=== PATIENT | female | born 1980 | race Caucasian/White ===

== ENCOUNTER 2016-04-12 18:01 | Emergency (ER) | payer OTHER ==
--- NOTE | 2016-04-12 20:00 | ED CLINICAL REPORT ---
Clinical Report - Physicians/Mid Levels [facility] [address] [place] [address] 04/12/2016 18:02 Patient: ALVINO WADE Time Seen: 19:10; upon arrival, initial patient contact, initial documentation, patient care assumed. Arrived- By private vehicle. Historian- patient. HISTORY OF PRESENT ILLNESS Chief Complaint: HEADACHE. This started just prior to arrival. It is described as "pain" and diffuse. No neck pain. Not located in the facial region. At its maximum, severity described as severe. When seen in the E.D., it was almost gone. Modifying factors: relieved by nothing. Not worsened by anything. No preceding symptoms, blurred vision, photophobia, associated nausea or numbness. No weakness or vomiting. 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 No recent travel. Similar symptoms previously: Chronically, as bad. Recent medical care: Not recently seen/assessed. REVIEW OF SYSTEMS No fever, muscle aches, sinus pressure, ear pain or sore throat. No head injury or cough. c/o anxiety and stress lately and says the anxiety is making the headaches worse and come more often, would like something for anxiety. All systems otherwise negative, except as recorded above. PAST HISTORY See nurses notes. PROBLEMS: Bronchitis. Hypertension. Anxiety Reaction. --18:20 Aliya Ornelas R.N. Depression. --18:22 Aliya Ornelas RMitchelN. ADDITIONAL SURGERIES: Knee Surgery. Tonsillectomy. Tubal Ligation. --18:21 Aliya Ornelas R.N. SOCIAL HISTORY Light tobacco smoker. History of heavy drug use: methamphetamines. Recently used drugs today. Under influence in ED. No alcohol use. No recent travel. Is a local resident. FAMILY HISTORY Negative. ADDITIONAL NOTES The nursing notes have been reviewed with agreement regarding the chief complaint, HPI, ROS, PMH and patient medications and allergies. PHYSICAL EXAM Vital Signs: 04/12/2016 18:15 BP: 158/110. HR: 94. RR: 16. O2 saturation: 100%. Temp: 98.0 F. Have been reviewed as abnormal and appear to be correct. Hypertensive. Heart rate normal. Respiratory rate normal. Temperature normal. Oxygen saturation normal. Appearance: Alert. No acute distress. Eyes: Pupils equal, round and reactive to light. Eyes normal inspection. ENT: Ears normal. Nose normal. Pharynx normal. Neck: Normal inspection. Neck supple. CVS: Normal heart rate and rhythm. Heart sounds normal. Respiratory: No respiratory distress. Breath sounds normal. Back: Normal inspection. Skin: Skin warm and dry. Normal skin color. No rash. Normal skin turgor. Extremities: Extremities exhibit normal ROM. No lower extremity edema. Neuro: Oriented X 3. Alert. Mood/affect normal. Speech normal. Cranial nerves normal (as tested). No cerebellar findings. No motor deficit. No sensory deficit. PROGRESS AND PROCEDURES Course of Care: 04/12/2016 20:24 BP: 118/94. HR: 88. RR: 16. O2 saturation: 100%. Temp: 98.5 F. Vital Signs: have been reviewed as normal and appear to be correct. Patient counseled in person regarding the patient's stable condition and diagnosis. 20:00. Differential Diagnosis: I considered migraine, subarachnoid hemorrhage, intracranial bleed, vascular malformation, cerebral aneurysm, vascular dissection, vasculitis, temporal arteritis, sinusitis, influenza, viral syndrome, carbon monoxide exposure, analgesic abuse, hypoglycemia and trigeminal neuralgia as a possible cause of headache in this patient. This is a partial list of diagnoses considered. Other possible considerations: anxiety. Above considerations are based on history and physical exam. Differential diagnosis was discussed with patient. Disposition: Discharged home in good and improved condition (20:00). Condition: good and stable. CLINICAL IMPRESSION Acute new daily persistent headache. Anxiety reaction. INSTRUCTIONS Warnings: GENERAL WARNINGS: Return or contact your physician immediately if your condition worsens or changes unexpectedly, if not improving as expected, or if other problems arise. SPECIFICALLY, return if you develop fever, vomiting, numbness, weakness, difficulty thinking, visual disturbances, fainting or extreme fatigue. Prescription Medications: Fioricet: Take 1-2 orally every 4 hours as needed for headache. Dispense twenty (20). No refills. Substitution is permissible. Xanax 0.25 mg: Take 1 orally every 8 hours as needed for anxiety. Dispense fifteen (15). No refills. Substitution is permissible. Follow-up: Follow up with your doctor in about three days even if well. Call for an appointment. Summary of care provided to patient. Screening today revealed the patient's blood pressure to be in the hypertensive range. Blood pressure screening was not performed during this visit because blood pressure screening was precluded by clinical urgency. Understanding of the discharge instructions verbalized by patient. (Electronically signed by Nandini Bermudez A.R.N.P. 04/12/2016 20:45)
--- NOTE | 2016-04-12 20:01 | ED ORDER SUMMARY ---
..... Patient: ALVINO WADE OrderSheet [facility] VisitID: [id number] [address] [place] [address] 35y, F Registration Date/Time: 04/12/2016 ORDER SHEET Weight: 58.9 kg (stated) Allergies: Penicillin GENERAL ORDERS: MEDICATION ORDERS: Xanax PO 0.5 mg (NOW) (19:27 04/12/2016 Arelis A.R.N.P.) (19:39 Jovany R.N.) IV FLUIDS: ORDER SHEET NOTES: [Electronically signed by Willow Lobato R.N. (20:25 04/12/2016)] [Electronically signed by Nandini BermudezR.N.PMitchel (20:45 04/12/2016)] [Electronically locked/signed by Willow Lobato R.N. (20:25 04/12/2016)]
--- NOTE | 2016-04-12 20:01 | ED ORDER SUMMARY ---
..... Patient: ALVINO WADE OrderSheet [facility] VisitID: [id number] [address] [place] [address] 35y, F Registration Date/Time: 04/12/2016 ORDER SHEET Weight: 58.9 kg (stated) Allergies: Penicillin GENERAL ORDERS: MEDICATION ORDERS: Xanax PO 0.5 mg (NOW) (19:27 04/12/2016 Arelis A.R.N.P.) (19:39 Jovany R.N.) IV FLUIDS: ORDER SHEET NOTES: [Electronically signed by Willow Lobato R.N. (20:25 04/12/2016)] [Electronically signed by Nandini BermudezR.N.PMitchel (20:45 04/12/2016)] [Electronically locked/signed by Willow Lobato R.N. (20:25 04/12/2016)]
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
--- NOTE | 2016-04-12 20:45 | ED MAR SUMMARY ---
..... Medication Administration Record [facility] [address] [place] [address] Patient: ALVINO WADE Visit ID: [id number] 35y, F Weight: 58.9 kg Height/Length: 64 in BMI: 22.3 ALLERGIES: Penicillin Given 19:38 04/12/2016 Willow Lobato R.N. Medication Administered: XANAX [PO] (ALPRAZOLAM), Dose: 0.5 mg Tablets PO. Medication Ordered: Xanax PO 0.5 mg (NOW).
--- NOTE | 2016-04-12 20:45 | ED MED RECONCILIATION SUMMARY ---
Patient: ALVINO WADE Medication Reconciliation Report [facility] VisitID: [id number] [address] [place] [address] 35y, F Registration Date/Time: 04/12/2016 Weight: 58.9 kg Height/Length: 64 in. BMI: 22.3 ALLERGIES: Penicillin The patient's Home Medications are listed below: NONE. The source(s) of the original Home Medication information: Not obtained. The following Medications were given to the patient in the Emergency Department: Xanax [PO] PO 0.5 mg, administered: 04/12/2016 7:38:00 PM The following Medications were prescribed to the patient: Fioricet: Take 1-2 orally every 4 hours as needed for headache. Dispense twenty (20). No refills. Substitution is permissible. -- Nandini Bermudez, A.R.N.P. Xanax 0.25 mg: Take 1 orally every 8 hours as needed for anxiety. Dispense fifteen (15). No refills. Substitution is permissible. -- Nandini Bermudez, A.R.N.P.
--- NOTE | 2016-04-12 20:45 | ED MAR SUMMARY ---
..... Medication Administration Record [facility] [address] [place] [address] Patient: ALVINO WADE Visit ID: [id number] 35y, F Weight: 58.9 kg Height/Length: 64 in BMI: 22.3 ALLERGIES: Penicillin Given 19:38 04/12/2016 Willow Lobato R.N. Medication Administered: XANAX [PO] (ALPRAZOLAM), Dose: 0.5 mg Tablets PO. Medication Ordered: Xanax PO 0.5 mg (NOW).
--- NOTE | 2016-04-12 20:45 | ED MED RECONCILIATION SUMMARY ---
Patient: ALVINO WADE Medication Reconciliation Report [facility] VisitID: [id number] [address] [place] [address] 35y, F Registration Date/Time: 04/12/2016 Weight: 58.9 kg Height/Length: 64 in. BMI: 22.3 ALLERGIES: Penicillin The patient's Home Medications are listed below: NONE. The source(s) of the original Home Medication information: Not obtained. The following Medications were given to the patient in the Emergency Department: Xanax [PO] PO 0.5 mg, administered: 04/12/2016 7:38:00 PM The following Medications were prescribed to the patient: Fioricet: Take 1-2 orally every 4 hours as needed for headache. Dispense twenty (20). No refills. Substitution is permissible. -- Nandini Bermudez, A.R.N.P. Xanax 0.25 mg: Take 1 orally every 8 hours as needed for anxiety. Dispense fifteen (15). No refills. Substitution is permissible. -- Nandini Bermudez, A.R.N.P.
--- NOTE | 2016-04-12 20:45 | ED DISCHARGE INSTRUCTIONS ---
Patient: ALVINO WADE General Instructions [facility] VisitID: [id number] [place] [address] 35y, F Registration Date/Time: 04/12/2016 Acute new daily persistent headache. Anxiety reaction. INSTRUCTIONS Warnings: GENERAL WARNINGS: Return or contact your physician immediately if your condition worsens or changes unexpectedly, if not improving as expected, or if other problems arise. SPECIFICALLY, return if you develop fever, vomiting, numbness, weakness, difficulty thinking, visual disturbances, fainting or extreme fatigue. Prescription Medications: Fioricet: Take 1-2 orally every 4 hours as needed for headache. Dispense twenty (20). No refills. Substitution is permissible. Xanax 0.25 mg: Take 1 orally every 8 hours as needed for anxiety. Dispense fifteen (15). No refills. Substitution is permissible. Follow-up: Follow up with your doctor in about three days even if well. Call for an appointment. Summary of care provided to patient. Screening today revealed the patient's blood pressure to be in the hypertensive range. Blood pressure screening was not performed during this visit because blood pressure screening was precluded by clinical urgency. Understanding of the discharge instructions verbalized by patient. ADDITIONAL INFORMATION Headache [Unspecified] The cause of your headache today is not clear, but it does not appear to be the sign of any serious illness. Under stress, some people tense the muscles of their shoulder, neck and scalp without knowing it. If this condition lasts long enough, a TENSION HEADACHE can occur. A MIGRAINE HEADACHE is caused by changes in blood flow to the brain. A migraine attack may be triggered by emotional stress, hormone changes during the menstrual cycle, oral contraceptives, alcohol use, certain foods containing tyramine, eye strain, weather changes, missing meals, lack of sleep or oversleeping. Other causes of headache include a viral illness with high fever, head injury with concussion, sinus, ear or throat infection, dental pain and TMJ (jaw joint) pain. More serious but less common causes of headache include stroke, brain hemorrhage, brain tumor, meningitis and encephalitis. Home Care: If you were given pain medicine for this headache, do not drive yourself home. Arrange for a ride, instead. When you get home, try to sleep. You should feel much better when you wake up. Apply heat to the back of your neck to relieve neck muscle spasm. Migraine headaches may respond best to an ice pack on the forehead or at the base of the skull. If you are having nausea or vomiting, follow a light diet until your headache is relieved. If you have a migraine type headache, use sunglasses when in the daylight or around bright indoor lighting until symptoms improve. Bright glaring light can worsen this kind of headache. Follow Up with your doctor if the headache is not better within the next 24 hours. If you have frequent headaches you should discuss a treatment plan with your primary care doctor. By being aware of the earliest signs of headache, and starting treatment right away, you may be able to stop the pain yourself. Get Prompt Medical Attention if any of the following occur: Worsening of your head pain or no improvement within 24 hours Repeated vomiting (unable to keep liquids down) Fever of 100.4F (38C) or higher, or as directed by your healthcare provider Stiff neck Extreme drowsiness, confusion or fainting Dizziness, vertigo (dizziness with spinning sensation) Weakness of an arm or leg or one side of the face Difficulty with speech or vision Stress Reaction Anxiety is the feeling we all get when we think something bad might happen. It is a normal response to stress and usually causes only a mild reaction. When anxiety becomes more severe, emotions may interfere with daily life. In some cases, you may not even be aware of what it is youre anxious about! During an anxiety reaction, you may feel like you are helpless, nervous, depressed or irritable. Your body may show signs of anxiety in many ways. You may experience dry mouth, shakiness, dizziness, weakness, trouble breathing, chest pressure, headache, nausea, diarrhea, tiredness, inability to sleep or sexual problems. Home Care: 1) Try to locate the sources of stress in your life. They may not be obvious! These may include: -- Daily hassles of life which pile up (traffic jams, missed appointments, car troubles, etc.) -- Major life changes, both good (new baby, job promotion) and bad (loss of job, loss of loved one) -- Overload: feeling that you have too many responsibilities and can't take care of all of them at once -- Feeling helpless, feeling that your problems are beyond what youre able to solve 2) Notice how your body reacts to stress. Learn to listen to your body signals. This will help you take action before the stress becomes severe. 3) When you can, do something about the source of your stress. (Avoid hassles, limit the amount of change that happens in your life at one time and take a break when you feel overloaded). 4) Unfortunately, many stressful situations cannot be avoided. It is necessary to learn HOW TO MANAGE STRESS better. There are many proven methods that will reduce your anxiety. These include simple things like exercise, good nutrition and adequate rest. Also, there are certain techniques that are helpful: relaxation and breathing exercises, visualization, biofeedback and meditation. For more information about this, consult your doctor or go to a local bookstore and review the many books and tapes available on this subject. Follow Up If you feel that your anxiety is not responding to self-help measures, contact your doctor or make an appointment with a counselor. Get Prompt Medical Attention if any of the following occur: -- Your symptoms get worse -- Chest pain or trouble breathing -- Severe headache not relieved by rest and mild pain reliever -- Rapid or irregular heartbeat, fainting Butalbital, Acetaminophen, Caffeine Oral tablet What is this medicine? ACETAMINOPHEN; BUTALBITAL; CAFFEINE (a set a CACHORRO patrice fen; byoo YE bi ye; KAF een) is a pain reliever. It is used to treat tension headaches. How should I use this medicine? Take this medicine by mouth with a full glass of water. Follow the directions on the prescription label. If the medicine upsets your stomach, take the medicine with food or milk. Do not take more than you are told to take. Talk to your airport ramp attendant regarding the use of this medicine in children. Special care may be needed. What side effects may I notice from receiving this medicine? Side effects that you should report to your doctor or health janitor caretaker as soon as possible: allergic reactions like skin rash, itching or hives, swelling of the face, lips, or tongue breathing problems confusion feeling faint or lightheaded, falls redness, blistering, peeling or loosening of the skin, including inside the mouth seizure stomach pain yellowing of the eyes or skin Side effects that usually do not require medical attention (report to your doctor or health janitor caretaker if they continue or are bothersome): constipation nausea, vomiting What may interact with this medicine? alcohol or medicines that contain alcohol antidepressants, especially MAOIs like isocarboxazid, phenelzine, tranylcypromine, and selegiline antihistamines benzodiazepines carbamazepine isoniazid medicines for pain like pentazocine, buprenorphine, butorphanol, nalbuphine, tramadol, and propoxyphene muscle relaxants naltrexone phenobarbital, phenytoin, and fosphenytoin phenothiazines like perphenazine, thioridazine, chlorpromazine, mesoridazine, fluphenazine, prochlorperazine, promazine, and trifluoperazine voriconazole What if I miss a dose? If you miss a dose, take it as soon as you can. If it is almost time for your next dose, take only that dose. Do not take double or extra doses. Where should I keep my medicine? Keep out of the reach of children. This medicine can be abused. Keep your medicine in a safe place to protect it from theft. Do not share this medicine with anyone. Selling or giving away this medicine is dangerous and against the law. Store at room temperature between 15 and 30 degrees C (59 and 86 degrees F). Keep container tightly closed. Protect from light. Throw away any unused medicine after the expiration date. What should I tell my health care provider before I take this medicine? They need to know if you have any of these conditions: drink more than 3 alcohol-containing drinks per day drug abuse or addiction heart or circulation problems kidney disease or problems going to the bathroom liver disease lung disease, asthma, or breathing problems porphyria an unusual or allergic reaction to acetaminophen, butalbital or other barbiturates, caffeine, other medicines, foods, dyes, or preservatives or trying to get breast-feeding What should I watch for while using this medicine? Tell your doctor or health janitor caretaker if your pain does not go away, if it gets worse, or if you have new or a different type of pain. You may develop tolerance to the medicine. Tolerance means that you will need a higher dose of the medicine for pain relief. Tolerance is normal and is expected if you take the medicine for a long time. Do not suddenly stop taking your medicine because you may develop a severe reaction. Your body becomes used to the medicine. This does NOT mean you are addicted. Addiction is a behavior related to getting and using a drug for a non-medical reason. If you have pain, you have a medical reason to take pain medicine. Your doctor will tell you how much medicine to take. If your doctor wants you to stop the medicine, the dose will be slowly lowered over time to avoid any side effects. You may get drowsy or dizzy when you first start taking the medicine or change doses. Do not drive, use machinery, or do anything that may be dangerous until you know how the medicine affects you. Stand or sit up slowly. Do not take other medicines that contain acetaminophen with this medicine. Always read labels carefully. If you have questions, ask your doctor or pharmacist. If you take too much acetaminophen get medical help right away. Too much acetaminophen can be very dangerous and cause liver damage. Even if you do not have symptoms, it is important to get help right away. Alprazolam Oral tablet What is this medicine? ALPRAZOLAM (al PRAY armida cerna) is a benzodiazepine. It is used to treat anxiety and panic attacks. How should I use this medicine? Take this medicine by mouth with a glass of water. Follow the directions on the prescription label. Take your medicine at regular intervals. Do not take it more often than directed. If you have been taking this medicine regularly for some time, do not suddenly stop taking it. You must gradually reduce the dose or you may get severe side effects. Ask your doctor or health janitor caretaker for advice. Even after you stop taking this medicine it can still affect your body for several days. Talk to your airport ramp attendant regarding the use of this medicine in children. Special care may be needed. What side effects may I notice from receiving this medicine? Side effects that you should report to your doctor or health janitor caretaker as soon as possible: allergic reactions like skin rash, itching or hives, swelling of the face, lips, or tongue confusion, forgetfulness depression difficulty sleeping difficulty speaking feeling faint or lightheaded, falls mood changes, excitability or aggressive behavior muscle cramps trouble passing urine or change in the amount of urine unusually weak or tired Side effects that usually do not require medical attention (report to your doctor or health janitor caretaker if they continue or are bothersome): change in sex drive or performance changes in appetite What may interact with this medicine? Do not take this medicine with any of the following medications: certain medicines for HIV infection or AIDS ketoconazole itraconazole This medicine may also interact with the following medications: control pills certain macrolide antibiotics like clarithromycin, erythromycin, troleandomycin cimetidine cyclosporine ergotamine grapefruit juice herbal or dietary supplements like kava kava, melatonin, dehydroepiandrosterone, DHEA, Miriam's Wort or valerian imatinib, STI-571 isoniazid levodopa medicines for depression, anxiety, or psychotic disturbances prescription pain medicines rifampin, rifapentine, or rifabutin some medicines for blood pressure or heart problems some medicines for seizures like carbamazepine, oxcarbazepine, phenobarbital, phenytoin, primidone What if I miss a dose? If you miss a dose, take it as soon as you can. If it is almost time for your next dose, take only that dose. Do not take double or extra doses. Where should I keep my medicine? Keep out of the reach of children. This medicine can be abused. Keep your medicine in a safe place to protect it from theft. Do not share this medicine with anyone. Selling or giving away this medicine is dangerous and against the law. Store at room temperature between 20 and 25 degrees C (68 and 77 degrees F). Throw away any unused medicine after the expiration date. What should I tell my health care provider before I take this medicine? They need to know if you have any of these conditions: an alcohol or drug abuse problem bipolar disorder, depression, psychosis or other mental health conditions glaucoma kidney or liver disease lung or breathing disease myasthenia gravis Parkinson's disease porphyria seizures or a history of seizures suicidal thoughts an unusual or allergic reaction to alprazolam, other benzodiazepines, foods, dyes, or preservatives or trying to get breast-feeding What should I watch for while using this medicine? Visit your doctor or health janitor caretaker for regular checks on your progress. Your body can become dependent on this medicine. Ask your doctor or health janitor caretaker if you still need to take it. You may get drowsy or dizzy. Do not drive, use machinery, or do anything that needs mental alertness until you know how this medicine affects you. To reduce the risk of dizzy and fainting spells, do not stand or sit up quickly, especially if you are an older patient. Alcohol may increase dizziness and drowsiness. Avoid alcoholic drinks. Do not treat yourself for coughs, colds or allergies without asking your doctor or health janitor caretaker for advice. Some ingredients can increase possible side effects. You have been given the following additional information: Headache, Unspecified Anxiety Reaction Butalbital, Acetaminophen, Caffeine Oral tablet Alprazolam Oral tablet (Electronically signed by Nandini Bermudez A.R.N.P. 04/12/2016 20:45)
== END 2016-04-12 19:25 | disposition home or self-care (01) ==
LOC: ED SRH 18:01
DX: R51 Headache (principal); F41.1 Generalized anxiety disorder; I10 Essential (primary) hypertension; F17.210 Nicotine dependence, cigarettes, uncomplicated; Z88.0 Allergy status to penicillin

== ENCOUNTER 2016-06-06 23:31 | Emergency (ER) | payer OTHER ==
--- NOTE | 2016-06-07 02:43 | ED NURSING NOTES ---
Clinical Report - Nurses Located Within [facility] [address] [place] [address] 06/06/2016 23:32 Patient: ALVINO WADE TRIAGE 01:15- attempted to triage pt, pt in restroom. --01:17 Jacqueline Flynn R.N. Triage time 01:22. Acuity: LEVEL 4. Chief Complaint: (multiple sores on fore arms). Alert. No acute distress. --:27 Jacqueline Flynn R.N. 01:21 06/07/16. BP: 150/94. HR: 90. RR: 15. O2 saturation: 98% on room air. Temp: 98.1 F (oral). Carcamo-Hager pain scale: 4/10. --01: Jacqueline Flynn R.N. Weight: 56.6 kg stated. Height/Length: 64 inches Per Patient. BMI: 21.4. --01:25 Jacqueline Flynn R.N. Medications None. --01:23 Jacqueline Flynn R.N. Allergies No Known Drug Allergy. --01:24 Jacqueline Flynn R.N. History Arrived by private vehicle. Historian: patient. Primary physician ([facility] [place]). ( pt states she has been taking boyfriends antibiotics). Onset. (about 1 weeks ago). PAST MEDICAL HX: Immunizations: up-to-date. SOCIAL HX: Heavy tobacco smoker (cigarette)- less than 1 pack per day. No alcohol use or drug use. --01:27 Jacqueline Flynn R.N. PROBLEMS: Depression. Anxiety Reaction. --:24 Jacqueline Flynn R.N. ADDITIONAL SURGERIES: Knee Surgery. Tonsillectomy. Tubal Ligation. Uterine ablasion. --01:24 Jacqueline Flynn R.N. Interventions ID band on patient. To treatment room. --:27 Jacqueline Flynn R.N. PHYSICAL ASSESSMENT Ambulatory to room. GENERAL / NEURO / PSYCH: Alert. Oriented X 4. Appears in no acute distress. HEENT: Mucous membranes are pink. RESPIRATORY: Respirations not labored. CVS: Capillary refill less than 2 seconds. SKIN: Skin is warm and dry. Erythema to right forearm and left forearm. --:27 Jacqueline Flynn R.N. NURSING PROGRESS NOTES Head of bed elevated. Two patient identifiers checked. Call light placed in reach. Side rails up x 1. Bed placed in lowest position. Brakes of bed on. --: Jacqueline Flynn R.N. Patient ready for evaluation- chart flagged. --:27 Jacqueline Flynn R.N. DISPOSITION / DISCHARGE The patient left the Emergency Department without being seen by a physician; patient was accompanied by a tip mender. The patient did not notify the ED staff prior to leaving the department. The patient left the Emergency Department ambulatory and via private vehicle. ( EDMD went into room to see pt, Pt gone.). --02:43 Jacqueline Flynn R.N. Locked/Released at 06/07/2016 2:43 by Jacqueline Flynn R.N.
--- NOTE | 2016-06-07 02:43 | ED NURSING NOTES ---
Clinical Report - Nurses [facility] [address] [place] [address] 06/06/2016 23:32 Patient: ALVINO WADE TRIAGE 01:15- attempted to triage pt, pt in restroom. --01:17 Jacqueline Flynn R.N. Triage time 01:22. Acuity: LEVEL 4. Chief Complaint: (multiple sores on fore arms). Alert. No acute distress. --:27 Jacqueline Flynn R.N. 01:21 06/07/16. BP: 150/94. HR: 90. RR: 15. O2 saturation: 98% on room air. Temp: 98.1 F (oral). Carcamo-Hager pain scale: 4/10. --01: Jacqueline Flynn R.N. Weight: 56.6 kg stated. Height/Length: 64 inches Per Patient. BMI: 21.4. --01:25 Jacqueline Flynn R.N. Medications None. --01:23 Jacqueline Flynn R.N. Allergies No Known Drug Allergy. --01:24 Jacqueline Flynn R.N. History Arrived by private vehicle. Historian: patient. Primary physician ([facility]). ( pt states she has been taking boyfriends antibiotics). Onset. (about 1 weeks ago). PAST MEDICAL HX: Immunizations: up-to-date. SOCIAL HX: Heavy tobacco smoker (cigarette)- less than 1 pack per day. No alcohol use or drug use. --01:27 Jacqueline Flynn R.N. PROBLEMS: Depression. Anxiety Reaction. --:24 Jacqueline Flynn R.N. ADDITIONAL SURGERIES: Knee Surgery. Tonsillectomy. Tubal Ligation. Uterine ablasion. --01:24 Jacqueline Flynn R.N. Interventions ID band on patient. To treatment room. --:27 Jacqueline Flynn R.N. PHYSICAL ASSESSMENT Ambulatory to room. GENERAL / NEURO / PSYCH: Alert. Oriented X 4. Appears in no acute distress. HEENT: Mucous membranes are pink. RESPIRATORY: Respirations not labored. CVS: Capillary refill less than 2 seconds. SKIN: Skin is warm and dry. Erythema to right forearm and left forearm. --:27 Jacqueline Flynn R.N. NURSING PROGRESS NOTES Head of bed elevated. Two patient identifiers checked. Call light placed in reach. Side rails up x 1. Bed placed in lowest position. Brakes of bed on. --: Jacqueline Flynn R.N. Patient ready for evaluation- chart flagged. --:27 Jacqueline Flynn R.N. DISPOSITION / DISCHARGE The patient left the Emergency Department without being seen by a physician; patient was accompanied by a time study statistician. The patient did not notify the ED staff prior to leaving the department. The patient left the Emergency Department ambulatory and via private vehicle. ( EDMD went into room to see pt, Pt gone.). --02:43 Jacqueline Flynn R.N. Locked/Released at 06/07/2016 2:43 by Jacqueline Flynn R.N.
--- NOTE | 2016-06-13 20:40 | ED DISCHARGE INSTRUCTIONS ---
Patient: ALVINO WADE General Instructions [facility] VisitID: [id number] [address] [place] [address] 35y, F Registration Date/Time: 06/06/2016 LWBS. (Electronically signed by Tyler Wade MD 06/13/2016 20:40)
--- NOTE | 2016-06-13 20:40 | ED CLINICAL REPORT ---
Clinical Report - Physicians/Mid Levels [address] [place] [address] 06/06/2016 23:32 Patient: ALVINO WADE CLINICAL IMPRESSION LWBS. (Electronically signed by Tyler Wade MD 06/13/2016 20:40)
--- NOTE | 2016-06-13 20:40 | ED MAR SUMMARY ---
..... Medication Administration Record [facility] [address] [place], [place] [id number] Patient: ALVINO WADE Visit ID: [id number] 35y, F Weight: 56.6 kg Height/Length: 64 in BMI: 21.4 ALLERGIES: No Known Drug Allergy
--- NOTE | 2016-06-13 20:40 | ED MAR SUMMARY ---
..... Medication Administration Record [facility] [address] [place], [place] [id number] Patient: ALVINO WADE Visit ID: [id number] 35y, F Weight: 56.6 kg Height/Length: 64 in BMI: 21.4 ALLERGIES: No Known Drug Allergy
--- NOTE | 2016-06-13 20:40 | ED MED RECONCILIATION SUMMARY ---
Patient: ALVINO WADE Medication Reconciliation Report [facility] VisitID: [id number] [address] [place] [place] [address] 35y, F Registration Date/Time: 06/06/2016 Weight: 56.6 kg Height/Length: 64 in. BMI: 21.4 ALLERGIES: No Known Drug Allergy The patient's Home Medications are listed below: NONE. The source(s) of the original Home Medication information: Not obtained. The following Medications were given to the patient in the Emergency Department: None. The following Medications were prescribed to the patient: None.
--- NOTE | 2016-06-13 20:40 | ED MED RECONCILIATION SUMMARY ---
Patient: ALVINO WADE Medication Reconciliation Report [facility] VisitID: [id number] [address] [place] [address] 35y, F Registration Date/Time: 06/06/2016 Weight: 56.6 kg Height/Length: 64 in. BMI: 21.4 ALLERGIES: No Known Drug Allergy The patient's Home Medications are listed below: NONE. The source(s) of the original Home Medication information: Not obtained. The following Medications were given to the patient in the Emergency Department: None. The following Medications were prescribed to the patient: None.
--- NOTE | 2016-06-13 20:40 | ED DISCHARGE INSTRUCTIONS ---
Patient: ALVINO WADE General Instructions [facility] VisitID: [id number] [address] [place] [address] 35y, F Registration Date/Time: 06/06/2016 LWBS. (Electronically signed by Tyler Wade MD 06/13/2016 20:40)
--- NOTE | 2016-06-13 20:40 | ED CLINICAL REPORT ---
Clinical Report - Physicians/Mid Levels [address] [place] [address] 06/06/2016 23:32 Patient: ALVINO WADE CLINICAL IMPRESSION LWBS. (Electronically signed by Tyler Wade MD 06/13/2016 20:40)
== END 2016-06-07 02:43 | disposition home or self-care (01) ==
LOC: ED SRH 23:31
DX: Z53.21 Procedure and treatment not carried out due to patient leaving prior to being seen by health care provider (principal)

== ENCOUNTER 2016-06-22 03:39 | Emergency (ER) | payer OTHER ==
--- NOTE | 2016-06-22 04:36 | ED CLINICAL REPORT ---
Clinical Report - Physicians/Mid Levels [facility] [address] [place] [address] 06/22/2016 3:40 Patient: ALVINO WADE Time Seen: 03:49. Arrived- By private vehicle. Historian- patient. HISTORY OF PRESENT ILLNESS Chief Complaint: ANXIOUS. This started last night. The patient has had anxiety with lightheadedness. REVIEW OF SYSTEMS No chills, fever, sweats, calf pain or chest pain. No cough, difficulty breathing, pedal edema, palpitations or abdominal pain. No constipation, diarrhea, nausea, vomiting or urinary problems. All systems otherwise negative, except as recorded above. SOCIAL HISTORY Current every day light tobacco smoker (cigarette)- less than 1/2 a pack per day. History of drug use: methamphetamines. Recently used drugs days ago. FAMILY HISTORY Denies family medical history. ADDITIONAL NOTES The nursing notes have been reviewed. PHYSICAL EXAM Vital Signs: 06/22/2016 03:44 BP: 148/99. HR: 103. RR: 16. O2 saturation: 100%. Temp: 98.2 F. Pain level now: 0/10. Have been reviewed. Appearance: Alert. Is disheveled. Anxious. Eyes: Pupils equal, round and reactive to light. Neck: Normal inspection. Neck supple. No carotid bruit. CVS: Normal heart rate and rhythm. Heart sounds normal. Respiratory: Breath sounds normal. Abdomen: Soft and nontender. Skin: Skin warm and dry. Extremities: Extremities exhibit normal ROM. No lower extremity edema. Psych / Neuro: Speech is pressured. PROGRESS AND PROCEDURES Course of Care: Patient is stable. Patient/family counseled. Old medical records reviewed. Disposition: Discharged. Condition: stable. CLINICAL IMPRESSION Anxiety reaction. INSTRUCTIONS No driving or operating machinery while taking medication. Sedative medication was given during your visit. Stay with responsible adult family member (or other responsible adult). Warnings: Further evaluation is necessary. GENERAL WARNINGS: Return or contact your physician immediately if your condition worsens or changes unexpectedly, if not improving as expected, or if other problems arise. Understanding of the discharge instructions verbalized by patient. Follow-up with: [facility], , , [address] [address] [facility], [address], [place] [address] [place], Follow up. Call for the next available appointment. (Electronically signed by Javier Mansfield MD 06/22/2016 10:29)
--- NOTE | 2016-06-22 04:36 | ED NURSING NOTES ---
Clinical Report - Nurses [facility] [address] [place] [address] 06/22/2016 3:40 Patient: ALVINO WADE TRIAGE Triage time 03:44. Acuity: LEVEL 4. Chief Complaint: (anxiety). --03:47 JuanitaB R.N. 03:44 06/22/16. BP: 148/99. HR: 103. RR: 16. O2 saturation: 100%. Temp: 98.2 F. Pain level now: 0. --03:47 JuanitaB R.N. Weight: 58.9 kg. Height/Length: 64 inches. BMI: 22.3. --03:47 TonTracie R.N. Medications None. --04:56 Terry R.N. Allergies No Known Drug Allergy. --04:56 Terry R.N. History Arrived by private vehicle. Historian: patient. Accompanied by family. Treatment PAROLE DIRECTOR: (vistiril). PAST MEDICAL HX: Immunizations: up-to-date. Last normal menstrual period- unknown. SOCIAL HX: Light tobacco smoker- less than 1/2 a pack per day. No alcohol use or drug use. No infectious disease exposure. SELF HARM ASSESSMENT: A self harm assessment was performed. The patient answered "no" to the question "Have you recently felt down, depressed, or hopeless?", "Have you noticed less interest or pleasure in doing things?", "Do you have thoughts of harming or killing yourself?", "Are you here because you tried to hurt yourself?", "Have you ever tried to hurt yourself before today?", "Have you recently had thoughts about harming or killing others?" and "Do you have any dangerous items in your possession?". FALL RISK ASSESSMENT: Fall risk assessment completed. No fall risk identified. NUTRITIONAL RISK ASSESSMENT: The nutritional risk assessment revealed no deficiencies. FUNCTIONAL ASSESSMENT: Functional assessment: no impairments noted. LEARNING NEEDS ASSESSMENT: The learning needs assessment revealed no barriers. ABUSE ASSESSMENT: Abuse assessment: The patient was asked "Do you feel safe in your home?". SKIN INTEGRITY ASSESSMENT: Skin integrity risk assessment completed. No skin integrity risk identified. --03:47 Armando Stewart Interventions ID band on patient. To treatment room. --03:47 Armando Stewart PHYSICAL ASSESSMENT Ambulatory to room. GENERAL / NEURO / PSYCH: Alert. Oriented X 4. Appears in no acute distress. HEENT: Pupils equal, round and reactive to light. No facial asymmetry noted. Mucous membranes are pink. RESPIRATORY: Respirations not labored. Chest nontender. Breath sounds within normal limits. CVS: Normal sinus rhythm noted. Capillary refill less than 2 seconds. Pulses within normal limits. GI / : Abdomen soft and nontender and normal bowel sounds. SKIN: Skin intact. Skin is warm and dry. Normal skin turgor. --03:47 Armando Stewart NURSING PROGRESS NOTES Patient identifiers checked. Call light placed in reach. Side rails up x 1. Bed placed in lowest position. Brakes of bed on. --03:47 Armando Stewart 04:54 06/22/2016 Benadryl (DiphenhydrAMINE HCl) IM 25 mg given. Given in the left deltoid. Allergies verified, confirmed 5 rights and sedative warning given to the patient. --04:54 Armando Stewart DISPOSITION / DISCHARGE Departure time: 04:55. Condition at departure: improved. No learning barriers present. Discharge instructions provided and reviewed with the patient. Patient verbalized understanding. Written instructions provided in Luxembourgish. No warning instructions, medication instructions, treatment instructions, referrals given to the patient or diet instructions. No activity restrictions, note given, follow up contact number given or stop smoking instructions. The patient was discharged by the physician. She was discharged home and accompanied by fire supervisor. She left the Emergency Department ambulatory and via private vehicle. Senior Fire Protection Engineer driving. FALL RISK ASSESSMENT: Fall risk assessment completed. No fall risk identified. --04:55 Armando Stewart 04:54 06/22/16. BP: deferred. HR: deferred. RR: deferred. O2 saturation: deferred. Temp: deferred. Pain level now deferred. --04:55 Armando Stewart Locked/Released at 06/22/2016 4:56 by Armando Stweart
--- NOTE | 2016-06-22 04:36 | ED ORDER SUMMARY ---
..... Patient: ALVINO WADE OrderSheet [facility] VisitID: [id number] [address] [place] [address] 35y, F Registration Date/Time: 06/22/2016 ORDER SHEET Weight: 58.9 kg Allergies: No Known Drug Allergy GENERAL ORDERS: MEDICATION ORDERS: Benadryl IM 25 mg (NOW) (04:34 06/22/2016 Supriya HERRERA) (4:54 Reece Costa.Jag) IV FLUIDS: ORDER SHEET NOTES: [Electronically signed by Juanita Bacon R.N. (04:56 06/22/2016)] [Electronically signed by Javier Mansfield MD (10:29 06/22/2016)] [Electronically locked/signed by Juanita Bacon R.N. (04:56 06/22/2016)]
--- NOTE | 2016-06-22 04:36 | ED NURSING NOTES ---
Clinical Report - Nurses [facility] [address] [place] [address] 06/22/2016 3:40 Patient: ALVINO WADE TRIAGE Triage time 03:44. Acuity: LEVEL 4. Chief Complaint: (anxiety). --03:47 JuanitaB R.N. 03:44 06/22/16. BP: 148/99. HR: 103. RR: 16. O2 saturation: 100%. Temp: 98.2 F. Pain level now: 0. --03:47 JuanitaB R.N. Weight: 58.9 kg. Height/Length: 64 inches. BMI: 22.3. --03:47 TonTracie R.N. Medications None. --04:56 Terry R.N. Allergies No Known Drug Allergy. --04:56 Terry R.N. History Arrived by private vehicle. Historian: patient. Accompanied by family. Treatment PLANT CONTROLS SPECIALIST: (vistiril). PAST MEDICAL HX: Immunizations: up-to-date. Last normal menstrual period- unknown. SOCIAL HX: Light tobacco smoker- less than 1/2 a pack per day. No alcohol use or drug use. No infectious disease exposure. SELF HARM ASSESSMENT: A self harm assessment was performed. The patient answered "no" to the question "Have you recently felt down, depressed, or hopeless?", "Have you noticed less interest or pleasure in doing things?", "Do you have thoughts of harming or killing yourself?", "Are you here because you tried to hurt yourself?", "Have you ever tried to hurt yourself before today?", "Have you recently had thoughts about harming or killing others?" and "Do you have any dangerous items in your possession?". FALL RISK ASSESSMENT: Fall risk assessment completed. No fall risk identified. NUTRITIONAL RISK ASSESSMENT: The nutritional risk assessment revealed no deficiencies. FUNCTIONAL ASSESSMENT: Functional assessment: no impairments noted. LEARNING NEEDS ASSESSMENT: The learning needs assessment revealed no barriers. ABUSE ASSESSMENT: Abuse assessment: The patient was asked "Do you feel safe in your home?". SKIN INTEGRITY ASSESSMENT: Skin integrity risk assessment completed. No skin integrity risk identified. --03:47 Armando Stewart Interventions ID band on patient. To treatment room. --03:47 Armando Stewart PHYSICAL ASSESSMENT Ambulatory to room. GENERAL / NEURO / PSYCH: Alert. Oriented X 4. Appears in no acute distress. HEENT: Pupils equal, round and reactive to light. No facial asymmetry noted. Mucous membranes are pink. RESPIRATORY: Respirations not labored. Chest nontender. Breath sounds within normal limits. CVS: Normal sinus rhythm noted. Capillary refill less than 2 seconds. Pulses within normal limits. GI / : Abdomen soft and nontender and normal bowel sounds. SKIN: Skin intact. Skin is warm and dry. Normal skin turgor. --03:47 Armando Stewart NURSING PROGRESS NOTES Patient identifiers checked. Call light placed in reach. Side rails up x 1. Bed placed in lowest position. Brakes of bed on. --03:47 Armando Stewart 04:54 06/22/2016 Benadryl (DiphenhydrAMINE HCl) IM 25 mg given. Given in the left deltoid. Allergies verified, confirmed 5 rights and sedative warning given to the patient. --04:54 Armando Stewart DISPOSITION / DISCHARGE Departure time: 04:55. Condition at departure: improved. No learning barriers present. Discharge instructions provided and reviewed with the patient. Patient verbalized understanding. Written instructions provided in Macedonian. No warning instructions, medication instructions, treatment instructions, referrals given to the patient or diet instructions. No activity restrictions, note given, follow up contact number given or stop smoking instructions. The patient was discharged by the physician. She was discharged home and accompanied by shoe lay out planner. She left the Emergency Department ambulatory and via private vehicle. Um Nurse driving. FALL RISK ASSESSMENT: Fall risk assessment completed. No fall risk identified. --04:55 Armando Stewart 04:54 06/22/16. BP: deferred. HR: deferred. RR: deferred. O2 saturation: deferred. Temp: deferred. Pain level now deferred. --04:55 Armando Stewart Locked/Released at 06/22/2016 4:56 by Armando Stewart
--- NOTE | 2016-06-22 04:36 | ED ORDER SUMMARY ---
..... Patient: ALVINO WADE OrderSheet [facility] VisitID: [id number] [address] [place] [address] 35y, F Registration Date/Time: 06/22/2016 ORDER SHEET Weight: 58.9 kg Allergies: No Known Drug Allergy GENERAL ORDERS: MEDICATION ORDERS: Benadryl IM 25 mg (NOW) (04:34 06/22/2016 Supriya HERRERA) (4:54 Reece Costa.Jag) IV FLUIDS: ORDER SHEET NOTES: [Electronically signed by Juanita Bacon R.N. (04:56 06/22/2016)] [Electronically signed by Javier Mansfield MD (10:29 06/22/2016)] [Electronically locked/signed by Juanita Bacon R.N. (04:56 06/22/2016)]
--- NOTE | 2016-06-22 04:36 | ED CLINICAL REPORT ---
Clinical Report - Physicians/Mid Levels [facility] [address] [place] [address] 06/22/2016 3:40 Patient: ALVINO WADE Time Seen: 03:49. Arrived- By private vehicle. Historian- patient. HISTORY OF PRESENT ILLNESS Chief Complaint: ANXIOUS. This started last night. The patient has had anxiety with lightheadedness. REVIEW OF SYSTEMS No chills, fever, sweats, calf pain or chest pain. No cough, difficulty breathing, pedal edema, palpitations or abdominal pain. No constipation, diarrhea, nausea, vomiting or urinary problems. All systems otherwise negative, except as recorded above. SOCIAL HISTORY Current every day light tobacco smoker (cigarette)- less than 1/2 a pack per day. History of drug use: methamphetamines. Recently used drugs days ago. FAMILY HISTORY Denies family medical history. ADDITIONAL NOTES The nursing notes have been reviewed. PHYSICAL EXAM Vital Signs: 06/22/2016 03:44 BP: 148/99. HR: 103. RR: 16. O2 saturation: 100%. Temp: 98.2 F. Pain level now: 0/10. Have been reviewed. Appearance: Alert. Is disheveled. Anxious. Eyes: Pupils equal, round and reactive to light. Neck: Normal inspection. Neck supple. No carotid bruit. CVS: Normal heart rate and rhythm. Heart sounds normal. Respiratory: Breath sounds normal. Abdomen: Soft and nontender. Skin: Skin warm and dry. Extremities: Extremities exhibit normal ROM. No lower extremity edema. Psych / Neuro: Speech is pressured. PROGRESS AND PROCEDURES Course of Care: Patient is stable. Patient/family counseled. Old medical records reviewed. Disposition: Discharged. Condition: stable. CLINICAL IMPRESSION Anxiety reaction. INSTRUCTIONS No driving or operating machinery while taking medication. Sedative medication was given during your visit. Stay with responsible adult family member (or other responsible adult). Warnings: Further evaluation is necessary. GENERAL WARNINGS: Return or contact your physician immediately if your condition worsens or changes unexpectedly, if not improving as expected, or if other problems arise. Understanding of the discharge instructions verbalized by patient. Follow-up with: [facility], , , [address] [address] [facility], [address], [place], Follow up. Call for the next available appointment. (Electronically signed by Javier Mansfield MD 06/22/2016 10:29)
--- NOTE | 2016-06-22 10:29 | ED DISCHARGE INSTRUCTIONS ---
Patient: ALVINO WADE General Instructions [facility] VisitID: [id number] [place] [address] 35y, F Registration Date/Time: 06/22/2016 Anxiety reaction. INSTRUCTIONS No driving or operating machinery while taking medication. Sedative medication was given during your visit. Stay with responsible adult family member (or other responsible adult). Warnings: Further evaluation is necessary. GENERAL WARNINGS: Return or contact your physician immediately if your condition worsens or changes unexpectedly, if not improving as expected, or if other problems arise. Understanding of the discharge instructions verbalized by patient. Follow-up with: [facility], , , [address], [address], [place], Follow up. Call for the next available appointment. ADDITIONAL INFORMATION Stress Reaction Anxiety is the feeling we all get when we think something bad might happen. It is a normal response to stress and usually causes only a mild reaction. When anxiety becomes more severe, emotions may interfere with daily life. In some cases, you may not even be aware of what it is youre anxious about! During an anxiety reaction, you may feel like you are helpless, nervous, depressed or irritable. Your body may show signs of anxiety in many ways. You may experience dry mouth, shakiness, dizziness, weakness, trouble breathing, chest pressure, headache, nausea, diarrhea, tiredness, inability to sleep or sexual problems. Home Care: 1) Try to locate the sources of stress in your life. They may not be obvious! These may include: -- Daily hassles of life which pile up (traffic jams, missed appointments, car troubles, etc.) -- Major life changes, both good (new baby, job promotion) and bad (loss of job, loss of loved one) -- Overload: feeling that you have too many responsibilities and can't take care of all of them at once -- Feeling helpless, feeling that your problems are beyond what youre able to solve 2) Notice how your body reacts to stress. Learn to listen to your body signals. This will help you take action before the stress becomes severe. 3) When you can, do something about the source of your stress. (Avoid hassles, limit the amount of change that happens in your life at one time and take a break when you feel overloaded). 4) Unfortunately, many stressful situations cannot be avoided. It is necessary to learn HOW TO MANAGE STRESS better. There are many proven methods that will reduce your anxiety. These include simple things like exercise, good nutrition and adequate rest. Also, there are certain techniques that are helpful: relaxation and breathing exercises, visualization, biofeedback and meditation. For more information about this, consult your doctor or go to a local bookstore and review the many books and tapes available on this subject. Follow Up If you feel that your anxiety is not responding to self-help measures, contact your doctor or make an appointment with a counselor. Get Prompt Medical Attention if any of the following occur: -- Your symptoms get worse -- Chest pain or trouble breathing -- Severe headache not relieved by rest and mild pain reliever -- Rapid or irregular heartbeat, fainting You have been given the following additional information: Anxiety Reaction No driving or operating machinery while taking medication. Sedative medication was given during your visit. Stay with responsible adult family member (or other responsible adult). (Electronically signed by Javier Mansfield MD 06/22/2016 10:29)
--- NOTE | 2016-06-22 10:29 | ED DISCHARGE INSTRUCTIONS ---
Patient: ALVINO WADE General Instructions [facility] VisitID: [id number] [place] [address] 35y, F Registration Date/Time: 06/22/2016 Anxiety reaction. INSTRUCTIONS No driving or operating machinery while taking medication. Sedative medication was given during your visit. Stay with responsible adult family member (or other responsible adult). Warnings: Further evaluation is necessary. GENERAL WARNINGS: Return or contact your physician immediately if your condition worsens or changes unexpectedly, if not improving as expected, or if other problems arise. Understanding of the discharge instructions verbalized by patient. Follow-up with: [facility], , , [address], [address], [place], Follow up. Call for the next available appointment. ADDITIONAL INFORMATION Stress Reaction Anxiety is the feeling we all get when we think something bad might happen. It is a normal response to stress and usually causes only a mild reaction. When anxiety becomes more severe, emotions may interfere with daily life. In some cases, you may not even be aware of what it is youre anxious about! During an anxiety reaction, you may feel like you are helpless, nervous, depressed or irritable. Your body may show signs of anxiety in many ways. You may experience dry mouth, shakiness, dizziness, weakness, trouble breathing, chest pressure, headache, nausea, diarrhea, tiredness, inability to sleep or sexual problems. Home Care: 1) Try to locate the sources of stress in your life. They may not be obvious! These may include: -- Daily hassles of life which pile up (traffic jams, missed appointments, car troubles, etc.) -- Major life changes, both good (new baby, job promotion) and bad (loss of job, loss of loved one) -- Overload: feeling that you have too many responsibilities and can't take care of all of them at once -- Feeling helpless, feeling that your problems are beyond what youre able to solve 2) Notice how your body reacts to stress. Learn to listen to your body signals. This will help you take action before the stress becomes severe. 3) When you can, do something about the source of your stress. (Avoid hassles, limit the amount of change that happens in your life at one time and take a break when you feel overloaded). 4) Unfortunately, many stressful situations cannot be avoided. It is necessary to learn HOW TO MANAGE STRESS better. There are many proven methods that will reduce your anxiety. These include simple things like exercise, good nutrition and adequate rest. Also, there are certain techniques that are helpful: relaxation and breathing exercises, visualization, biofeedback and meditation. For more information about this, consult your doctor or go to a local bookstore and review the many books and tapes available on this subject. Follow Up If you feel that your anxiety is not responding to self-help measures, contact your doctor or make an appointment with a counselor. Get Prompt Medical Attention if any of the following occur: -- Your symptoms get worse -- Chest pain or trouble breathing -- Severe headache not relieved by rest and mild pain reliever -- Rapid or irregular heartbeat, fainting You have been given the following additional information: Anxiety Reaction No driving or operating machinery while taking medication. Sedative medication was given during your visit. Stay with responsible adult family member (or other responsible adult). (Electronically signed by Javier Mansfield MD 06/22/2016 10:29)
--- NOTE | 2016-06-22 10:29 | ED MAR SUMMARY ---
..... Medication Administration Record [facility] [address] [place] [address] Patient: ALVINO WADE Visit ID: [id number] 35y, F Weight: 58.9 kg Height/Length: 64 in BMI: 22.3 ALLERGIES: No Known Drug Allergy Given 04:54 06/22/2016 Armando Stewart Medication Administered: BENADRYL [IM] (DIPHENHYDRAMINE HCL), Dose: 25 mg IM. Medication Ordered: Benadryl IM 25 mg (NOW).
--- NOTE | 2016-06-22 10:29 | ED MAR SUMMARY ---
..... Medication Administration Record [facility] [address] [place] [address] Patient: ALVINO WADE Visit ID: [id number] 35y, F Weight: 58.9 kg Height/Length: 64 in BMI: 22.3 ALLERGIES: No Known Drug Allergy Given 04:54 06/22/2016 Armando Stewart Medication Administered: BENADRYL [IM] (DIPHENHYDRAMINE HCL), Dose: 25 mg IM. Medication Ordered: Benadryl IM 25 mg (NOW).
--- NOTE | 2016-06-22 10:30 | ED MED RECONCILIATION SUMMARY ---
Patient: ALVINO WADE Medication Reconciliation Report [facility] VisitID: [id number] [address] [place] [address] 35y, F Registration Date/Time: 06/22/2016 Weight: 58.9 kg Height/Length: 64 in. BMI: 22.3 ALLERGIES: No Known Drug Allergy The patient's Home Medications are listed below: NONE. The source(s) of the original Home Medication information: Not obtained. The following Medications were given to the patient in the Emergency Department: Benadryl [IM] IM 25 mg, administered: 06/22/2016 4:54:00 AM The following Medications were prescribed to the patient: None.
--- NOTE | 2016-06-22 10:30 | ED MED RECONCILIATION SUMMARY ---
Patient: ALVINO WADE Medication Reconciliation Report [facility] VisitID: [id number] [address] [place] [address] 35y, F Registration Date/Time: 06/22/2016 Weight: 58.9 kg Height/Length: 64 in. BMI: 22.3 ALLERGIES: No Known Drug Allergy The patient's Home Medications are listed below: NONE. The source(s) of the original Home Medication information: Not obtained. The following Medications were given to the patient in the Emergency Department: Benadryl [IM] IM 25 mg, administered: 06/22/2016 4:54:00 AM The following Medications were prescribed to the patient: None.
== END 2016-06-22 04:50 | disposition home or self-care (01) ==
LOC: ED SRH 03:39
DX: F41.1 Generalized anxiety disorder (principal); F15.90 Other stimulant use, unspecified, uncomplicated; F17.210 Nicotine dependence, cigarettes, uncomplicated

== ENCOUNTER 2016-07-20 23:20 | Emergency (ER) | payer OTHER ==
--- NOTE | 2016-07-21 00:32 | ED CLINICAL REPORT ---
Clinical Report - Physicians/Mid Levels [facility] [address] [place] [address] 07/20/2016 23:21 Patient: ALVINO WDAE Time Seen: 23:26. Arrived- By private vehicle. Historian- patient. HISTORY OF PRESENT ILLNESS Chief Complaint: BOIL. This started several days ago and is still present. It is described as painful. It has been located on the right upper extremity. A cause has been identified (PT has a h/o injection drug abuse.). (Pt states she has been started on Bactrim, and has only had one dose, but is concerned it doesn't seem to be working.). Similar symptoms previously: Recent medical care: The patient was seen recently at another facility. REVIEW OF SYSTEMS No fever, chills, sore throat, cough or difficulty breathing. No hoarseness, enlarged lymph nodes, headache, eye irritation or chest pain. No abdominal pain, nausea, diarrhea, difficulty with urination or joint pain. No vomiting. All systems otherwise negative, except as recorded above. PAST HISTORY Problems: Iv Drug Use. Headache. Depression. Bronchitis. Immunizations. Hypertension. Anxiety Reaction. LNMP - Last Normal Menstrual Period. Additional Surgeries: Knee Surgery. Tonsillectomy. Tubal Ligation. Uterine ablasion. Medications: Bactrim DS Oral. Allergies: Penicillins. SOCIAL HISTORY Smoker- current status unknown. History of drug use: heroin, methamphetamines. ADDITIONAL NOTES The nursing notes have been reviewed. PHYSICAL EXAM Vital Signs: 07/20/2016 23:25 BP: 130/90. HR: 99. RR: 17. O2 saturation: 99%. Temp: 97.7 F. Pain level now: 7/10. Have been reviewed. Appearance: No acute distress. (Pt is drowsy, but appropriate otherwise.). Eyes: Pupils equal, round and reactive to light. Conjunctivae and eyelids normal. ENT: Nose normal. Neck: Neck supple. CVS: Normal heart rate and rhythm. Pulses normal. Strong peripheral pulses. Heart sounds normal. Respiratory: No respiratory distress. Breath sounds normal. Skin: Skin warm and dry. Single small abscess with fluctuance, pointing and cellulitis to right arm. Extremities: (Abscess on R arm, as noted above. Otherwise, unremarkable for acute abnormalities.). Neuro: (Pt is drowsy, but answers questions appropriately.). LABS, X-RAYS, AND EKG Pulse Oximetry: 07/20/2016 23:25 O2 saturation: 99%. (FIO2 - room air). Interpretation: normal. PROGRESS AND PROCEDURES Incision & Drainage of Abscess: The abscess is located in the right arm. The risks of the procedure, benefits and alternatives were explained. Local anesthesia provided using 2% lidocaine. Skin cleansed with Betadine. The abscess was incised with a #11 surgical blade. A small amount of pus was drained. Cavity was irrigated with saline and packed with gauze. Sample obtained for cultures and gram stain. A dressing was applied. Course of Care: Pt's abscess was I&D'd, as above. Pt was already on abx, and was advised to continue these, as directed. Patient counseled in person regarding the patient's stable condition, diagnosis and wound care. Concerns were addressed. Old medical records reviewed. Disposition: Discharged. Condition: stable and improved. CLINICAL IMPRESSION Single superficial abscess to the right upper extremity with incision and drainage. INSTRUCTIONS Protect wound and keep wound area clean. (Please have the packing changed in 2 days.). Change dressing daily. Warnings: GENERAL WARNINGS: Return or contact your physician immediately if your condition worsens or changes unexpectedly, if not improving as expected, or if other problems arise. Your Current Medications: CONTINUE TAKING THE FOLLOWING MEDICATIONS: Bactrim DS Oral. Follow-up: Follow up with your doctor in two days if not better. Understanding of the discharge instructions verbalized by patient. (Electronically signed by Vero Mckeon MD 08/01/2016 11:18)
--- NOTE | 2016-07-21 00:32 | ED ORDER SUMMARY ---
..... Patient: ALVINO WADE OrderSheet [facility] VisitID: [id number] [address] [place] [address] 35y, F Registration Date/Time: 07/20/2016 ORDER SHEET Weight: 56.6 kg (stated) Allergies: Penicillins GENERAL ORDERS: Culture, Wound Surface (Arm) (swab) Urgent (00:26 07/21/2016 Nina HERRERA) (0:27 Candice Roberts) MEDICATION ORDERS: IV FLUIDS: ORDER SHEET NOTES: [Electronically signed by Ana Traore R.N. (00:50 07/21/2016)] [Electronically signed by Vero Mckeon MD (11:18 08/01/2016)] [Electronically locked/signed by Ana Traore R.N. (00:50 07/21/2016)]
--- NOTE | 2016-07-21 00:32 | ED NURSING NOTES ---
Clinical Report - Nurses [facility] [address] [place] [address] 07/20/2016 23:21 Patient: ALVINO WADE TRIAGE Triage time 23:26 Jul 20 2016. Chief Complaint: RIGHT UPPER EXTREMITY PAIN, SWELLING and REDNESS. Location of symptoms- (pt reports "a spider bite" to right upper arm, pt saw her pcp 2 days ago, was put on bactrim, pt reports pain and pressure increased). Alert. No acute distress. SEPSIS SCREEN: Sepsis Screen: negative. Infection suspected/documented. NOE COMA SCORE: [place] Coma Scale: 15- eyes open spontaneously (4); best verbal response- oriented x 4 (5); best motor response- obeys commands (6). --23:32 Melany Jonas R.N. 23:25 07/20/16. BP: 130/90. HR: 99. RR: 17. O2 saturation: 99%. Temp: 97.7 F. Pain level now: 08/22. --23:32 Melany Jonas R.N. Weight: 56.6 kg stated. Height/Length: 65 inches Per Patient. BMI: 20.8. --23:30 Melany Jonas R.N. Medications Bactrim DS Oral. --23:28 Melany Jonas R.N. Medication/allergy information source: the patient. --23:32 Melany Jonas R.N. Allergies Penicillins. --23:28 Melany Jonas R.N. History Arrived by private vehicle. Historian: patient. No injury occurred. 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 PAST MEDICAL HX: Tetanus status: up-to-date. Immunizations: up-to-date. SOCIAL HX: Heavy tobacco smoker (cigarette)- less than 1 pack per day. History of heavy IV drug use: heroin, methamphetamines. Recently used drugs just prior to arrival. Under influence in ED. No alcohol use. No infectious disease exposure. ABUSE ASSESSMENT: No report of abuse. SELF HARM ASSESSMENT: A self harm assessment was performed. The patient answered "no" to the question "Do you have thoughts of harming or killing yourself?". FALL RISK ASSESSMENT: Fall risk assessment completed. No fall risk identified. NUTRITIONAL RISK ASSESSMENT: The nutritional risk assessment revealed no deficiencies. FUNCTIONAL ASSESSMENT: Functional assessment: no impairments noted. LEARNING NEEDS ASSESSMENT: The learning needs assessment revealed no barriers. SKIN INTEGRITY ASSESSMENT: Skin integrity risk assessment completed. No skin integrity risk identified. --23:32 Melany Jonas R.N. PROBLEMS: Iv Drug Use. Headache. Depression. Bronchitis. Immunizations. Hypertension. Anxiety Reaction. LNMP - Last Normal Menstrual Period. --23:29 Melany Jonas R.N. ADDITIONAL SURGERIES: Knee Surgery. Tonsillectomy. Tubal Ligation. Uterine ablasion. --23:29 Melany Jonas R.N. Interventions ID and allergy band on patient. --23:32 Melany Jonas R.N. PHYSICAL ASSESSMENT Ambulatory to room. GENERAL / NEURO / PSYCH: Oriented X 4. Alert. Appears in no acute distress. EXTREMITIES: Extremities exhibit normal ROM. Neuro-vascular status intact to the extremity. No upper extremity edema. Right shoulder: ("spider bite"). SKIN: Skin is warm and dry. --23:32 Melany Jonas R.N. NURSING PROGRESS NOTES Patient identifiers checked. Call light placed in reach. Side rails up x 1. Bed placed in lowest position. Brakes of bed on. Patient ready for evaluation- chart flagged. Patient waiting for evaluation. --23:33 Melany Jonas R.N. DISPOSITION / DISCHARGE 00:36 07/21/16. BP: 133/86. HR: 12. RR: 12. O2 saturation: 97% on room air. Temp: 98.3 F (oral). Pain level now: 07/23. --00:39 Jacqueline Flynn R.N. Departure time: 41. Condition at departure: improved and stable. No learning barriers present. Discharge instructions provided and reviewed with the patient. Reviewed wound care instructions. Patient verbalized understanding. Written instructions provided in [place]. No medication instructions. The patient was discharged home and accompanied by spouse. She left the Emergency Department ambulatory and via private vehicle. Spouse driving. --00:49 Ana Traore R.N. Locked/Released at 07/21/2016 0:50 by Ana rTaore R.N.
--- NOTE | 2016-07-21 00:32 | ED NURSING NOTES ---
Clinical Report - Nurses [facility] [address] [place] [address] 07/20/2016 23:21 Patient: ALVINO WADE TRIAGE Triage time 23:26 Jul 20 2016. Chief Complaint: RIGHT UPPER EXTREMITY PAIN, SWELLING and REDNESS. Location of symptoms- (pt reports "a spider bite" to right upper arm, pt saw her pcp 2 days ago, was put on bactrim, pt reports pain and pressure increased). Alert. No acute distress. SEPSIS SCREEN: Sepsis Screen: negative. Infection suspected/documented. NOE COMA SCORE: [place] Coma Scale: 15- eyes open spontaneously (4); best verbal response- oriented x 4 (5); best motor response- obeys commands (6). --23:32 Melany Jonas R.N. 23:25 07/20/16. BP: 130/90. HR: 99. RR: 17. O2 saturation: 99%. Temp: 97.7 F. Pain level now: 08/22. --23:32 Melany Jonas R.N. Weight: 56.6 kg stated. Height/Length: 65 inches Per Patient. BMI: 20.8. --23:30 Melany Jonas R.N. Medications Bactrim DS Oral. --23:28 Melany Jonas R.N. Medication/allergy information source: the patient. --23:32 Melany Jonas R.N. Allergies Penicillins. --23:28 Melany Jonas R.N. History Arrived by private vehicle. Historian: patient. No injury occurred. 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 PAST MEDICAL HX: Tetanus status: up-to-date. Immunizations: up-to-date. SOCIAL HX: Heavy tobacco smoker (cigarette)- less than 1 pack per day. History of heavy IV drug use: heroin, methamphetamines. Recently used drugs just prior to arrival. Under influence in ED. No alcohol use. No infectious disease exposure. ABUSE ASSESSMENT: No report of abuse. SELF HARM ASSESSMENT: A self harm assessment was performed. The patient answered "no" to the question "Do you have thoughts of harming or killing yourself?". FALL RISK ASSESSMENT: Fall risk assessment completed. No fall risk identified. NUTRITIONAL RISK ASSESSMENT: The nutritional risk assessment revealed no deficiencies. FUNCTIONAL ASSESSMENT: Functional assessment: no impairments noted. LEARNING NEEDS ASSESSMENT: The learning needs assessment revealed no barriers. SKIN INTEGRITY ASSESSMENT: Skin integrity risk assessment completed. No skin integrity risk identified. --23:32 Melany Jonas R.N. PROBLEMS: Iv Drug Use. Headache. Depression. Bronchitis. Immunizations. Hypertension. Anxiety Reaction. LNMP - Last Normal Menstrual Period. --23:29 Melany Jonas R.N. ADDITIONAL SURGERIES: Knee Surgery. Tonsillectomy. Tubal Ligation. Uterine ablasion. --23:29 Melany Jonas R.N. Interventions ID and allergy band on patient. --23:32 Melany Jonas R.N. PHYSICAL ASSESSMENT Ambulatory to room. GENERAL / NEURO / PSYCH: Oriented X 4. Alert. Appears in no acute distress. EXTREMITIES: Extremities exhibit normal ROM. Neuro-vascular status intact to the extremity. No upper extremity edema. Right shoulder: ("spider bite"). SKIN: Skin is warm and dry. --23:32 Melany Jonas R.N. NURSING PROGRESS NOTES Patient identifiers checked. Call light placed in reach. Side rails up x 1. Bed placed in lowest position. Brakes of bed on. Patient ready for evaluation- chart flagged. Patient waiting for evaluation. --23:33 Melany Jonas R.N. DISPOSITION / DISCHARGE 00:36 07/21/16. BP: 133/86. HR: 12. RR: 12. O2 saturation: 97% on room air. Temp: 98.3 F (oral). Pain level now: 07/23. --00:39 Jacqueline Flynn R.N. Departure time: 41. Condition at departure: improved and stable. No learning barriers present. Discharge instructions provided and reviewed with the patient. Reviewed wound care instructions. Patient verbalized understanding. Written instructions provided in Greek. No medication instructions. The patient was discharged home and accompanied by spouse. She left the Emergency Department ambulatory and via private vehicle. Spouse driving. --00:49 Ana Traore R.N. Locked/Released at 07/21/2016 0:50 by Ana Traore R.N.
--- NOTE | 2016-07-21 00:32 | ED ORDER SUMMARY ---
..... Patient: ALVINO WADE OrderSheet [facility] VisitID: [id number] [address] [place] [address] 35y, F Registration Date/Time: 07/20/2016 ORDER SHEET Weight: 56.6 kg (stated) Allergies: Penicillins GENERAL ORDERS: Culture, Wound Surface (Arm) (swab) Urgent (00:26 07/21/2016 Nina HERRERA) (0:27 Candice Roberts) MEDICATION ORDERS: IV FLUIDS: ORDER SHEET NOTES: [Electronically signed by Ana Traore R.N. (00:50 07/21/2016)] [Electronically signed by Vero Mckeon MD (11:18 08/01/2016)] [Electronically locked/signed by Ana Traore R.N. (00:50 07/21/2016)]
--- NOTE | 2016-08-01 11:19 | ED MAR SUMMARY ---
..... Medication Administration Record [facility] [address] [place], [place] [id number] Patient: ALVINO WADE Visit ID: [id number] 35y, F Weight: 56.6 kg Height/Length: 65 in BMI: 20.8 ALLERGIES: Penicillins
--- NOTE | 2016-08-01 11:19 | ED MAR SUMMARY ---
..... Medication Administration Record [facility] [address] [place], [place] [id number] Patient: ALVINO WADE Visit ID: [id number] 35y, F Weight: 56.6 kg Height/Length: 65 in BMI: 20.8 ALLERGIES: Penicillins
--- NOTE | 2016-08-01 11:19 | ED DISCHARGE INSTRUCTIONS ---
Patient: ALVINO WADE General Instructions [facility] VisitID: [id number] [place] [address] 35y, F Registration Date/Time: 07/20/2016 Single superficial abscess to the right upper extremity with incision and drainage. INSTRUCTIONS Protect wound and keep wound area clean. (Please have the packing changed in 2 days.). Change dressing daily. Warnings: GENERAL WARNINGS: Return or contact your physician immediately if your condition worsens or changes unexpectedly, if not improving as expected, or if other problems arise. Your Current Medications: CONTINUE TAKING THE FOLLOWING MEDICATIONS: Bactrim DS Oral. Follow-up: Follow up with your doctor in two days if not better. Understanding of the discharge instructions verbalized by patient. ADDITIONAL INFORMATION Abscess [Incision & Drainage] An abscess (sometimes called a boil) occurs when bacteria get trapped under the skin and begin to grow. Pus forms inside the abscess as the body responds to the bacteria. An abscess can occur with an insect bite, ingrown hair, blocked oil gland, pimple, cyst, or puncture wound. Treatment of your abscess has required an incision to drain the pus. If the abscess pocket was large, a gauze packing may have been inserted. This will need to be removed and possibly replaced on your next visit. Antibiotics are not required in the treatment of a simple abscess, unless the infection is spreading into the skin around the wound (known as cellulitis). Healing of the wound will take about one to two weeks depending on the size of the abscess. Healthy tissue will grow from the bottom and sides of the opening until it seals over. Home Care: The wound may drain for the first two days. Cover the wound with a clean dry dressing. If the dressing becomes soaked with blood or pus, change it. If a gauze packing was placed inside the abscess cavity, you may be advised to remove it yourself. You may do this in the shower. Once the packing is removed, you should wash the area in the shower or bath 3 to 4 times a day, until the skin opening has closed. If you were prescribed antibiotics, take them as directed until they are all gone. You may use acetaminophen (Tylenol) or ibuprofen (Motrin, Advil) to control pain, unless another pain medicine was prescribed. [ NOTE: If you have liver disease or ever had a stomach ulcer, talk with your doctor before using these medicines.] Follow Up with your doctor as advised by our staff. If a gauze packing was inserted in your wound, it should be removed in 1-2 days. Check your wound every day for the signs of worsening infection listed below. Get Prompt Medical Attention if any of the following occur: Increasing redness or swelling Red streaks in the skin leading away from the wound Increasing local pain or swelling Continued pus draining from the wound two days after treatment Fever of 100.4F (38C) or higher, or as directed by your healthcare provider You have been given the following additional information: Abscess, Incision And Drainage (Electronically signed by Vero Mckeon MD 08/01/2016 11:18)
--- NOTE | 2016-08-01 11:19 | ED MED RECONCILIATION SUMMARY ---
Patient: ALVINO WADE Medication Reconciliation Report [facility] VisitID: [id number] [address] [place] [address] 35y, F Registration Date/Time: 07/20/2016 Weight: 56.6 kg Height/Length: 65 in. BMI: 20.8 ALLERGIES: Penicillins The patient's Home Medications are listed below: CONTINUE TAKING THE FOLLOWING MEDICATIONS: Bactrim DS Oral The source(s) of the original Home Medication information: patient The following Medications were given to the patient in the Emergency Department: None. The following Medications were prescribed to the patient: None.
--- NOTE | 2016-08-01 11:19 | ED MED RECONCILIATION SUMMARY ---
Patient: ALVINO WADE Medication Reconciliation Report [facility] VisitID: [id number] [address] [place] [address] 35y, F Registration Date/Time: 07/20/2016 Weight: 56.6 kg Height/Length: 65 in. BMI: 20.8 ALLERGIES: Penicillins The patient's Home Medications are listed below: CONTINUE TAKING THE FOLLOWING MEDICATIONS: Bactrim DS Oral The source(s) of the original Home Medication information: patient The following Medications were given to the patient in the Emergency Department: None. The following Medications were prescribed to the patient: None.
== END 2016-07-21 00:42 | disposition home or self-care (01) ==
LOC: ED SRH 23:20
DX: L02.413 Cutaneous abscess of right upper limb (principal); I10 Essential (primary) hypertension; Z88.0 Allergy status to penicillin; Z79.899 Other long term (current) drug therapy
CPT/HCPCS: 90070; 90131; 90309; 91672